=== PATIENT | female | born 1965 | race Two or more races ===

== ENCOUNTER 2017-01-18 13:31 | Emergency (ER) | payer OTHER ==
[2017-01-18 13:47] VITALS: BP 157/81; PULSE 81; TEMP 98.2; BMI 38.4
--- NOTE | 2017-01-18 14:56 | PDOC ---
History of Present Illness - General Chief Complaint: Back Pain Stated Complaint: BACK PAIN Time Seen by Provider: 01/18/17 14:32 History Source: Patient Exam Limitations: No Limitations - History of Present Illness Initial Comments: CHIEF COMPLAINT: 51 y/o afebrile, morbidly obese female c/o right shoulder pain and right lower back pain x 2 months. HISTORY OF PRESENT ILLNESS: The patient denies trauma to back or shoulder. She is disabled and therefore denies any repetitive motion or heavy lifting. She has been taking 2 aleve per day with no relief. Vital signs on arrival are within normal limits. REVIEW OF SYSTEMS: GENERAL/CONSTITUTIONAL: No fever/chills. No weakness. No weight change. HEAD, EYES, EARS, NOSE AND THROAT: No change in vision. No ear pain or discharge. No sore throat. CARDIOVASCULAR: No chest pain or shortness of breath. RESPIRATORY: No cough, wheezing, or hemoptysis. GASTROINTESTINAL: No abd pain, nausea, vomiting, diarrhea. GENITOURINARY: No dysuria, frequency, or change in urination. MUSCULOSKELETAL: +right shoulder pain. +right low back pain. No neck pain. SKIN: No rash or easy bruising. NEUROLOGIC: No headache, vertigo, loss of consciousness, or loss of sensation. PHYSICAL EXAM: GENERAL: The patient is awake, alert, and fully oriented, in no acute distress. she is morbidly obese and ambulatory. HEAD: Normal with no signs of trauma. ENT: Pupils equal, round and reactive to light, extraocular movements intact, sclera anicteric, conjunctiva clear. Neck supple. EXTREMITIES: Normal range of motion, no edema. Pain with extension of right arm and abduction > 90 degrees. BACK: No midline lumbar spine TTP or step offs. Pain reproduced with palpation of right lumbar paravertebral muscles. NEUROLOGICAL: Normal speech, normal gait. CN II-XII grossly intact. PSYCH: Normal mood, normal affect. SKIN: Warm, dry, normal turgor, no rashes or lesions noted. Past History - Past Medical History Allergies/Adverse Reactions: Allergies Allergy/AdvReac Type Severity Reaction Status Date / Time No Known Allergies Allergy Verified 01/18/17 13:47 Home Medications: Ambulatory Orders Haloperidol 10 mg PO BID 06/05/15 Topiramate [Topamax] 200 mg PO BID 06/05/15 Metoprolol Succinate [Toprol XL -] 50 mg PO DAILY 07/04/15 Benztropine Mesylate [Cogentin -] 2 mg PO DAILY 01/18/17 Anemia: No Asthma: No Cancer: No Cardiac Disorders: No CVA: No COPD: No CHF: No Dementia: No Diabetes: No GI Disorders: No Disorders: No HTN: Yes Hypercholesterolemia: No Liver Disease: No Psychiatric Problems: Yes (DEPRESSION) Seizures: No Thyroid Disease: No - Surgical History Abdominal Surgery: No Appendectomy: No Cardiac Surgery: No Cholecystectomy: Yes Lung Surgery: No Orthopedic Surgery: No - Immunization History Immunization Up to Date: Yes - Psycho/Social/Smoking Cessation Hx Anxiety: No Suicidal Ideation: No Smoking Status: No Smoking History: Never smoked Have you smoked in the past 12 months: No Number of Cigarettes Smoked Daily: 0 Hx Alcohol Use: No Drug/Substance Use Hx: No Substance Use Type: None Hx Substance Use Treatment: No *Physical Exam - Vital Signs Last Vital Signs Temp Pulse Resp BP Pulse Ox 98.2 F 81 20 157/81 97 01/18/17 13:44 01/18/17 13:44 01/18/17 13:44 01/18/17 13:44 01/18/17 13:44 Medical Decision Making - Medical Decision Making A/P: 51 y/o afebrile female with chronic right shoulder and low back pain. Will give IM toradol in the ER. Suggested she take 800mg of ibuprofen TID with food for pain, apply heating pads and stretch affected area and f/u with Dr. Yarbrough within 2 weeks if no improvement in symptoms. Pt refused toradol. The patient verbalizes understanding of all instructions, has no further questions and is awaiting discharge. *DC/Admit/Observation/Transfer Diagnosis at time of Disposition: Musculoskeletal back pain Shoulder pain Qualifiers: Chronicity: acute Laterality: right Qualified Code(s): M25.511 - Pain in right shoulder - Discharge Dispostion Condition at time of disposition: Good - Referrals Referrals: STAFF,NOT ON [Primary Care Provider] - Terell Yarbrough MD [Staff Physician] - - Patient Instructions Printed Discharge Instructions: DI for Back Strain or Sprain, DI for Shoulder Sprain, How To Perform RICE (Rest, Ice, Compress, Elevate) Additional Instructions: Discharge Instructions: -A prescription for ibuprofen has been called to your pharmacy. Please take as prescribed for pain -Follow RICE instructions -Follow up with Dr. Yarbrough within 1 week if no improvement in symptoms
== END 2017-01-18 15:42 | disposition home or self-care (01) ==
LOC: JERFT 13:31
DX: M54.5 Low back pain (principal); M25.511 Pain in right shoulder; I10 Essential (primary) hypertension; F32.9 Major depressive disorder, single episode, unspecified
CPT/HCPCS: 99281-25

== ENCOUNTER 2017-09-14 09:33 | Emergency (ER) | payer OTHER ==
[2017-09-14 10:05] VITALS: BP 123/79; PULSE 86; TEMP 99; BMI 38.4
[2017-09-14] MEDS ORDERED: NAPROXEN 500 MG TABLET (FP) PO ONE (11:20)
[2017-09-14] MEDS ORDERED: NAPROXEN 500 MG TABLET (FP) ONE (11:22)
--- NOTE | 2017-09-14 11:25 | PDOC ---
History of Present Illness - General Chief Complaint: Pain Stated Complaint: RT HEEL PAIN Time Seen by Provider: 09/14/17 10:41 History Source: Patient Exam Limitations: No Limitations - History of Present Illness Initial Comments: 09/14/17 11:21 CHIEF COMPLAINT: Right heel pain HISTORY OF PRESENT ILLNESS: Patient is a 52-year-old female with history of depression presents with right heel pain. Patient reports she's had pain chronically but has worsened in the last several days woke up with increased intensity and pain today to right posterior heel. Denies any injury. History of Bone spur. Severity: Yes: moderate Lower Extremity Pain Location: right: heel Extremity Pain Location - Extremity Pain Location Extremity Pain Locations: right: heel Past History - Past Medical History Allergies/Adverse Reactions: Allergies Allergy/AdvReac Type Severity Reaction Status Date / Time No Known Allergies Allergy Verified 09/14/17 10:03 Home Medications: Ambulatory Orders Haloperidol 10 mg PO BID 06/05/15 Topiramate [Topamax] 200 mg PO BID 06/05/15 Metoprolol Succinate [Toprol XL -] 50 mg PO DAILY 07/04/15 Benztropine Mesylate [Cogentin -] 2 mg PO DAILY 01/18/17 Naproxen [Naprosyn] 500 mg PO BID #30 tablet 09/14/17 Anemia: No Asthma: No Cancer: No Cardiac Disorders: No CVA: No COPD: No CHF: No Dementia: No Diabetes: No GI Disorders: No Disorders: No HTN: Yes Hypercholesterolemia: No Liver Disease: No Psychiatric Problems: Yes (DEPRESSION) Seizures: No Thyroid Disease: No - Surgical History Abdominal Surgery: No Appendectomy: No Cardiac Surgery: No Cholecystectomy: Yes Lung Surgery: No Orthopedic Surgery: No - Immunization History Immunization Up to Date: Yes - Suicide/Smoking/Psychosocial Hx Smoking Status: No Smoking History: Never smoked Have you smoked in the past 12 months: No Number of Cigarettes Smoked Daily: 0 Information on smoking cessation initiated: No Hx Alcohol Use: No Drug/Substance Use Hx: No Substance Use Type: None Hx Substance Use Treatment: No Review of Systems - Review of Systems Constitutional: No: Symptoms Reported HEENTM: No: Symptoms Reported Respiratory: No: Symptoms reported Cardiac (ROS): No: Symptoms Reported ABD/GI: No: Symptoms Reported : No: Symptoms Reported Musculoskeletal: Yes: Other (right heel pain) Integumentary: Yes: Erythema (erythema to right posterior heel) Neurological: No: Symptoms reported All Other Systems: Reviewed and Negative *Physical Exam - Vital Signs Last Vital Signs Temp Pulse Resp BP Pulse Ox 99.0 F 86 18 123/79 100 09/14/17 10:03 09/14/17 10:03 09/14/17 10:03 09/14/17 10:03 09/14/17 10:03 - Physical Exam General Appearance: Yes: Appropriately Dressed. No: Apparent Distress Respiratory/Chest: positive: Lungs Clear, Normal Breath Sounds Cardiovascular: positive: Regular Rhythm Extremity: positive: Normal Capillary Refill, Normal Range of Motion, Tender ( right posterior heel), Erythema. negative: Coldness, Swelling, Inflammation Integumentary: positive: Normal Color, Dry, Erythema. negative: Swelling, Ecchymosis, Bruising Neurologic: positive: Alert, Normal Mood/Affect ED Treatment Course - RADIOLOGY Radiology Studies Ordered: Category Date Time Status FOOT-RIGHT [RAD] Stat Radiology 09/14/17 10:13 Completed Medical Decision Making - Medical Decision Making 09/14/17 11:22 A/P: Patient with right posterior heel pain, x-ray was performed and it demonstrates significant bone spurring patient referred to podiatry. Will start patient on Naprosyn with strict follow-up instructions *DC/Admit/Observation/Transfer Diagnosis at time of Disposition: Heel spur Qualifiers: Laterality: right Qualified Code(s): M77.31 - Calcaneal spur, right foot - Discharge Dispostion Disposition: HOME Condition at time of disposition: Stable Admit: No - Prescriptions Prescriptions: Naproxen [Naprosyn] 500 mg PO BID #30 tablet - Referrals Referrals: ON STAFF,NOT [Primary Care Provider] - - Patient Instructions Additional Instructions: May apply ice to right posterior heel, recommend follow-up with podiatry as soon as possible - Post Discharge Activity Forms/Work/School Notes: Back to Work
== END 2017-09-14 11:39 | disposition home or self-care (01) ==
LOC: JERFT 09:33
DX: M77.31 Calcaneal spur, right foot (principal); I10 Essential (primary) hypertension; F41.9 Anxiety disorder, unspecified
CPT/HCPCS: 73630-TC-RT; 99281-25

== ENCOUNTER 2018-01-13 08:58 | Emergency (ER) | payer OTHER ==
[2018-01-13 09:02] VITALS: BP 141/101; PULSE 94; TEMP 98.5; BMI 39.9
--- NOTE | 2018-01-13 09:19 | PDOC ---
History of Present Illness - General Chief Complaint: Pain Stated Complaint: SWOLLEN LT KNEE Time Seen by Provider: 01/13/18 09:10 History Source: Patient Exam Limitations: No Limitations (L knee pain X 4 days) - History of Present Illness Initial Comments: 01/13/18 09:22 52y/o F with atraumatic L knee pain X 4 days. taking tylenol Past History - Travel Traveled outside of the country in the last 30 days: No Close contact w/someone who was outside of country & ill: No - Past Medical History Allergies/Adverse Reactions: Allergies Allergy/AdvReac Type Severity Reaction Status Date / Time No Known Allergies Allergy Verified 01/13/18 09:02 Home Medications: Ambulatory Orders Haloperidol 10 mg PO BID 06/05/15 Topiramate [Topamax] 200 mg PO BID 06/05/15 Metoprolol Succinate [Toprol XL -] 50 mg PO DAILY 07/04/15 Benztropine Mesylate [Cogentin -] 2 mg PO DAILY 01/18/17 Naproxen [Naprosyn] 500 mg PO BID #30 tablet 09/14/17 Naproxen 375 mg PO BID 7 Days #20 tablet 01/13/18 Anemia: No Asthma: No Cancer: No Cardiac Disorders: No CVA: No COPD: No CHF: No Dementia: No Diabetes: No GI Disorders: No Disorders: No HTN: Yes Hypercholesterolemia: No Liver Disease: No Psychiatric Problems: Yes (DEPRESSION) Seizures: No Thyroid Disease: No - Surgical History Abdominal Surgery: No Appendectomy: No Cardiac Surgery: No Cholecystectomy: Yes Lung Surgery: No Orthopedic Surgery: No - Immunization History Immunization Up to Date: Yes - Suicide/Smoking/Psychosocial Hx Smoking Status: No Smoking History: Never smoked Have you smoked in the past 12 months: No Number of Cigarettes Smoked Daily: 0 Hx Alcohol Use: No Drug/Substance Use Hx: No Substance Use Type: None Hx Substance Use Treatment: No Review of Systems - Review of Systems Is the patient limited Tanzanian proficient: No Constitutional: No: Chills, Fever Musculoskeletal: Yes: Joint Swelling, Other (L knee pain). No: Back Pain, Muscle Pain, Joint Stiffness *Physical Exam - Vital Signs Last Vital Signs Temp Pulse Resp BP Pulse Ox 98.5 F 94 H 18 141/101 100 01/13/18 08:59 01/13/18 08:59 01/13/18 08:59 01/13/18 08:59 01/13/18 08:59 - Physical Exam General Appearance: Yes: Nourished Musculoskeletal: positive: Normal Inspection, Other (L knee). negative: Decreased Range of Motion Extremity: positive: Normal Capillary Refill (L knee--stable gait, no warmth or swelling noted, FROM) Neurologic: positive: system admin II-XII NML intact, Fully Oriented, Alert Medical Decision Making - Medical Decision Making 01/13/18 09:23 52y/o F with atraumatic L knee pain X 4 days, denies f/c exam consistent with FROM in knee, no warmth, + obese female weight loss recommended, naproxen for pain, RICE instructions will not benefit from xray imaging given no trauma and exam pt has a PCP appt in 2wks, recommends f/u 01/13/18 09:33 01/13/18 09:33 *DC/Admit/Observation/Transfer Diagnosis at time of Disposition: Knee pain, left Qualifiers: Chronicity: acute Qualified Code(s): M25.562 - Pain in left knee - Discharge Dispostion Disposition: HOME Condition at time of disposition: Stable Decision to Admit order: No - Prescriptions Prescriptions: Naproxen 375 mg PO BID 7 Days #20 tablet - Referrals Referrals: ON STAFF,NOT [Primary Care Provider] - - Patient Instructions Printed Discharge Instructions: DI for Knee Pain Additional Instructions: I discussed the physical exam findings, ancillary test results and final diagnoses with the patient. I answered all of the patient's questions. The patient was satisfied with the care received and felt comfortable with the discharge plan and treatment plan. The patient will call their primary care physician within 24 hours to arrange follow-up and will return to the Emergency Department with any new, persistent or worsening symptoms. - Post Discharge Activity
== END 2018-01-13 09:34 | disposition home or self-care (01) ==
LOC: JERFT 08:58
DX: M25.562 Pain in left knee (principal)
CPT/HCPCS: 99281-25

== ENCOUNTER 2018-05-01 07:36 | Day surgery (SDC) | payer OTHER ==
[2018-04-02 14:43] VITALS: BMI 41.9
[~2018-05-01 07:36] MED LIST: CEFAZOLIN 2 GM in DEXTROSE 5%-WATER - 50 ML IVPB ONE; CELECOXIB 200 MG CAPSULE PO ONE; GABAPENTIN 300 MG CAPSULE (FP) PO ONE; ROPIVICAINE 0.2%/MORPH PF/KETOROLAC - 51ML DISP.SYRINGE IA ONE; TRANEXAMIC ACID 1000 MG/10 ML VIAL IVPUSH ONE
--- NOTE | 2018-05-01 07:58 | HP ---
[facility] - Chief Complaint Chief Complaint: left knee pain - Past Medical History Allergies/Adverse Reactions: Allergies Allergy/AdvReac Type Severity Reaction Status Date / Time No Known Allergies Allergy Verified 04/02/18 14:35 Cardiovascular: Yes: HTN Gastrointestinal: Yes: Other (cholelithiasis) ...LMP: 04/02/18 - Current Medications Current Medications: Home Medications Medication Instructions Recorded Haloperidol 5 mg PO HS 06/05/15 Acetaminophen [Tylenol Arthritis] 650 mg PO BID 04/02/18 Calcium Carb/Vitamin D3/Vit K1 1 each PO DAILY 04/02/18 [Citracal Soft Chew] Multivitamins [Tab-A-Vit -] 1 tab PO DAILY 04/02/18 Sertraline HCl [Zoloft -] 50 mg PO HS 04/02/18 Sertraline HCl [Zoloft] 100 mg PO DAILY 04/02/18 Benztropine Mesylate [Cogentin -] 2 mg PO BID 05/01/18 Haloperidol [Haldol -] 2 mg PO DAILY 05/01/18 Naproxen 500 mg PO ASDIR PRN 05/01/18 [facility] Physical Exam - Physical Examination General Appearance: Well Nourished, Well Developed, Alert & Oriented x3 ENT: Clear Lung: Normal air movement Heart: Regular rate & rhythm Extremities: Other (left knee- + swelling, + ttp medially, decr rom, nvi xrays show grade 4 medial djd) Neurological: Intact, Alert, Oriented [facility] Impression/Plan - Impression/Plan Impression: left knee medial djd Operative Procedure: left medial tamia ukr Date to be Performed: 05/01/18
[2018-05-01] MEDS: oxyCODONE HCL 10 MG SUSTAINED ACTING TABLET PO ONE ×2 (08:15→19:41)
[2018-05-01] MEDS ORDERED: ceFAZolin SODIUM 1 GM VIAL ONE ×2 (08:32→09:44)
[2018-05-01] MEDS ORDERED: PROPOFOL 20 ML ONE ×2 (08:33)
[2018-05-01] MEDS ORDERED: MIDAZOLAM HCL 2 MG/2 ML SINGLE DOSE VIAL ONE ×2 (08:45→10:01)
[2018-05-01] MEDS ORDERED: ROPIVACAINE HCL 0.5% 30ML VIAL ONE (08:46)
[2018-05-01] MEDS ORDERED: BUPIVACAINE HCL/PF (5 MG/ML) 30 ML VIAL IJ ONE (09:42)
[2018-05-01] MEDS ORDERED: GELATIN, ABSORBABLE 100 EACH SPONGE TP ONE ×3 (09:44→10:48)
[2018-05-01] MEDS ORDERED: THROMBIN (BOVINE) 5,000 UNIT VIAL TP ONE ×3 (09:44→10:48)
[2018-05-01] MEDS ORDERED: ePHEDrine SULFATE 50 MG/1 ML AMPULE ONE (10:11)
[2018-05-01] MEDS ORDERED: ROPIVICAINE 0.2%/MORPH PF/KETOROLAC - 51ML DISP.SYRINGE IA ONE ×2 (10:58→11:08)
[2018-05-01] MEDS ORDERED: MAG HYDROX/AL HYDROX/SIMETH 30 ML UNIT-DOSE CUP PO PRN (11:26)
--- NOTE | 2018-05-01 11:28 | OP ---
Operative Note - Note: Operative Date: 05/01/18 (stephanie) Pre-Operative Diagnosis: left knee medial djd Operation: left medial tamia ukr Post-Operative Diagnosis: Same as Pre-op Surgeon: Juve Hernandez Naturopath: Benjamín Quiroga Anesthesiologist/BELT REPAIRER: Imelda Andino Anesthesia: Spinal, Local Specimens Removed: bone fragments Estimated Blood Loss (mls): 100 Operative Report Dictated: Yes
[2018-05-01] MEDS ORDERED: LACTATED RINGERS SOLUTION 1,000 ML IV SCH (11:30)
[2018-05-01] MEDS ORDERED: ONDANSETRON 4 MG/2 ML VIAL IVPUSH PRN (11:31)
[2018-05-01] MEDS ORDERED: oxyCODONE HCL 5 MG TABLET PO PRN (11:32)
[2018-05-01] MEDS ORDERED: ACETAMINOPHEN 325 MG TABLET (FP) PO ONE (12:00)
[2018-05-01] MEDS: oxyCODONE HCL 5 MG TABLET PO PRN ×3 (13:57→23:00)
[2018-05-01] MEDS: CEFAZOLIN 2 GM/D5W 2 GM/50 ML ML IVPB SCH (17:19)
[2018-05-01] MEDS: ACETAMINOPHEN 325 MG TABLET (FP) PO SCH ×3 (17:19→23:00)
[2018-05-01] MEDS ORDERED: PT OWN MED DRAWER 7, Y5N ONE (21:20)
[2018-05-01] MEDS: BENZTROPINE MESYLATE 0.5 MG TABLET (FP) PO SCH (21:23)
[2018-05-01] MEDS: SENNOSIDES/DOCUSATE COMBO (SENNA PLUS) TABLET (UD) PO SCH (21:23)
[2018-05-01] MEDS ORDERED: HALOPERIDOL 5 MG TABLET (FP) PO SCH (22:00)
[2018-05-01] MEDS ORDERED: SERTRALINE HCL 50 MG TABLET (FP) PO SCH (22:00)
[2018-05-02] MEDS: CEFAZOLIN 2 GM/D5W 2 GM/50 ML ML IVPB SCH (01:22)
[2018-05-02] MEDS: oxyCODONE HCL 5 MG TABLET PO PRN ×4 (03:03→12:13)
[2018-05-02] MEDS: ACETAMINOPHEN 325 MG TABLET (FP) PO SCH ×2 (05:47→12:12)
[2018-05-02 06:35] VITALS: BP 133/63; PULSE 94
[2018-05-02] MEDS ORDERED: ASPIRIN 325 MG TABLET PO SCH (08:00)
--- NOTE | 2018-05-02 09:14 | PN ---
Progress Note (short form) - Note Progress Note: Ortho Pt seen and examined s/p left medial tamia ukr pod #1 Selected Entries 05/02/18 06:34 Temperature 98.3 F Pulse Rate 94 H Respiratory 18 Rate Blood Pressure 133/63 dressing c/d/i, calf soft, nt rom 0-50, nvi a/p PT dvt ppx pain control d/c home today f/u in 1 week
--- NOTE | 2018-05-02 09:15 | DS ---
Physical Examination Vital Signs: Vital Signs Temperature 98.3 F 05/02/18 06:34 Pulse Rate 94 H 05/02/18 06:34 Respiratory Rate 18 05/02/18 09:00 Blood Pressure 133/63 05/02/18 06:34 O2 Sat by Pulse Oximetry (%) 98 05/02/18 09:00 Discharge Summary Reason For Visit: OSTEOARTHRITIS Procedures: Principal: s/p left medial tamia ukr Hospital Course: admitted for elective left medial tamia ukr, uneventful post-op, stable for d/c Condition: Good - Instructions Diet, Activity, Other Instructions: Post-op Instructions-Partial Knee Replacement Call the office for a follow-up appointment in 1 week - [phone] Aspirin 325mg daily for 6 weeks. Pain medication was sent into your pharmacy. Apply Graduated Compression Stockings (TEDs) to both lower extremities- remove daily for hygiene ONLY Apply Sequential Compression Device (SCDs) to both Lower extremities remove for PT and hygiene ONLY Apply cold packs to affected area for 15 minutes every 2 hours. Physical Therapist will come to your home for the first 5 days. You will be set up with outpatient PT at your first post-operative visit. Patient may ambulate as tolerated-encourage self care (at least every 2-3 hours while awake) with walker or cane Maintain Aquacel (waterproof) dressing to operative wound (will be removed by surgeon at first office visit) Shower with Aquacel dressing in place-if Aquacel integrity compromised, remove and apply dry sterile dressing and notify Orthopedist. DO NOT SHOWER unless Orthopedists approves without Aquacel dressing CONTACT THE OFFICE FOR ANY CHANGE IN YOUR CONDITION (for example-fever greater than 102 degrees, excessive bleeding from operative site, purulent drainage, severe swelling or pain) GO TO THE EMERGENCY ROOM IF THERE IS A MEDICAL EMERGENCY Knee Precautions: * Keep a rolled towel under affected heel while in bed or chair (to keep knee in extension) * Keep affected leg elevated except during mealtimes * DO NOT PLACE PILLOW UNDER AFFECTED KNEE * If you have any questions, please do not hesitate to call the office - . Referrals: Juve Hernandez MD [Staff Physician] - Disposition: VNS/HOME HEALTH CARE - Home Medications Comprehensive Discharge Medication List: Ambulatory Orders Haloperidol 5 mg PO HS 06/05/15 Acetaminophen [Tylenol Arthritis] 650 mg PO BID 04/02/18 Calcium Carb/Vitamin D3/Vit K1 [Citracal Soft Chew] 1 each PO DAILY 04/02/18 Multivitamins [Multivit ([facility] Formulary)] 1 tab PO DAILY 04/02/18 Sertraline HCl [Zoloft -] 50 mg PO HS 04/02/18 Sertraline HCl [Zoloft] 100 mg PO DAILY 04/02/18 Aspirin [ASA -] 325 mg PO DAILY@0800 tablet 05/01/18 Benztropine Mesylate [Cogentin -] 2 mg PO BID 05/01/18 Haloperidol [Haldol -] 2 mg PO DAILY 05/01/18 Naproxen 500 mg PO ASDIR PRN 05/01/18 Oxycodone HCl/Acetaminophen [Percocet 5-325 mg Tablet -] 1 - 2 tab PO Q6H #50 tab MDD 8 05/01/18
[2018-05-02] MEDS ORDERED: PT OWN MED DRAWER 7, Y5N ONE (09:23)
[2018-05-02] MEDS: SENNOSIDES/DOCUSATE COMBO (SENNA PLUS) TABLET (UD) PO SCH (09:29)
[2018-05-02] MEDS: BENZTROPINE MESYLATE 0.5 MG TABLET (FP) PO SCH (09:31)
[2018-05-02] MEDS ORDERED: SERTRALINE HCL 50 MG TABLET (FP) PO SCH (10:00)
[2018-05-02] MEDS ORDERED: PANTOPRAZOLE 40 MG TABLET (FP) PO SCH (10:00)
[2018-05-02] MEDS ORDERED: PATIENT'S OWN MEDICATION (NON-FORMULARY) (Sertraline Hcl [Zoloft] 100 MG) PO SCH (10:00)
[2018-05-02] MEDS ORDERED: HALOPERIDOL 1 MG TABLET (FP) PO SCH (10:00)
[2018-05-02] MEDS ORDERED: MULTIVITAMINS (DAILY MVI) TABLET (FP) PO SCH ×2 (10:00)
--- NOTE | 2018-05-02 10:08 | PN ---
Progress Note, Physician Chief Complaint: day #1 s/p left medial knee tamia - Current Medication List Current Medications: Active Medications Acetaminophen (Tylenol -) 650 mg PO Q6H [facility] [place] Stop: 05/04/18 11:44 Last Admin: 05/02/18 05:47 Dose: 650 mg Al Hydroxide/Mg Hydroxide (Mylanta Oral Suspension -) 30 ml PO Q4H PRN PRN Reason: DYSPEPSIA Aspirin (Asa -) 325 mg PO DAILY@0800 [facility] [place] Last Admin: 05/02/18 08:34 Dose: 325 mg Benztropine Mesylate (Cogentin -) 2 mg PO BID [facility] Last Admin: 05/02/18 09:31 Dose: 2 mg Haloperidol (Haldol -) 2 mg PO DAILY [facility] [place] Last Admin: 05/02/18 09:32 Dose: 2 mg Haloperidol (Haldol -) 5 mg PO [facility] Last Admin: 05/01/18 21:23 Dose: 5 mg Multivitamins/Minerals/Vitamin C (Tab-A-Vit -) 1 tab PO DAILY [facility] [place] Last Admin: 05/02/18 09:30 Dose: 1 tab Ondansetron HCl (Zofran Injection) 4 mg IVPUSH Q6H PRN PRN Reason: NAUSEA AND/OR VOMITING Oxycodone HCl (Roxicodone -) 5 mg PO Q3H PRN PRN Reason: PAIN LEVEL 1-5 Oxycodone HCl (Roxicodone -) 10 mg PO Q3H PRN PRN Reason: PAIN LEVEL 6-10 Last Admin: 05/02/18 09:30 Dose: 10 mg Pantoprazole Sodium (Protonix -) 40 mg PO DAILY [facility] [place] Last Admin: 05/02/18 09:30 Dose: 40 mg Senna/Docusate Sodium (Pericolace -) 2 tablet PO BID [facility] [place] Last Admin: 05/02/18 09:29 Dose: 2 tablet Sertraline HCl (Zoloft -) 50 mg PO HS [facility] [place] Last Admin: 05/01/18 21:23 Dose: 50 mg Sertraline HCl (Zoloft -) 100 mg PO DAILY [facility] Last Admin: 05/02/18 09:29 Dose: 100 mg - Objective Vital Signs: Vital Signs Temperature 98.3 F 05/02/18 06:34 Pulse Rate 94 H 05/02/18 06:34 Respiratory Rate 18 05/02/18 09:00 Blood Pressure 133/63 05/02/18 06:34 O2 Sat by Pulse Oximetry (%) 98 05/02/18 09:00 Assessment/Plan Doing well s/p spinal and nerve block for medial knee makoplasty. Pain well controlled on PO pain meds; pt for dc today
[2018-05-02 11:20] VITALS: TEMP 98.6
--- NOTE | 2018-05-03 19:59 | SPEC ---
DATE OF OPERATION: 05/01/2018 PREOPERATIVE DIAGNOSIS: Degenerative joint disease, left knee, medially. POSTOPERATIVE DIAGNOSIS: Degenerative joint disease, left knee, medially. PROCEDURE: Left medial unicompartmental knee replacement with robotic-assisted navigation (MAKOplasty) and patelloplasty. SURGICAL ATTENDING: Juve Hernandez MD SMELLER: JAQUELIN Chowdhury ANESTHESIA: Regional and spinal. CLOSURE: Medial NANO components with a 3 femur, 4 tibia, and an 8 polyethylene; No. 1 Vicryl, fascia; 0 and 2-0, subcutaneous; 3-0 Monocryl subcuticular with skin glue for skin; 4-0 undyed Vicryl for pin sites. CONDITION: To recovery in stable condition. DESCRIPTION OF OPERATIVE PROCEDURE: Patient was taken to the operating room on May 01, 2018. Spinal and regional anesthesia was administered by the anesthesiologist. IV Kefzol and TXA were administered prophylactically prior to the case. A well-padded pneumatic tourniquet was placed on the left proximal thigh. The left lower extremity was prepped and draped in the usual sterile fashion. A 6- to 8-cm longitudinal incision over the medial side of the patella from mid patella to the tibial tubercle was incised and was deepened using Bovie cautery. An arthrotomy was then made just medial to the patellar tendon and the patella. Subperiosteal dissection was done on the anteromedial proximal tibia all the way back to the MCL. Partial fat pad excision was performed, exposing the medial compartment. Checkpoint was malleable at both the femur and the tibia. Using 2 stab incisions in the femur 1 handbreadth above the patella on the femur and 2 stab incisions 1 handbreadth below the tibial tubercle on the tibia, 2 threaded pins were drilled in parallel fashion from anterior to posterior, going through the proximal cortex and engaging the 2nd but not through the 2nd cortex. To these threaded pins were fastened navigation rays, 1 on the femur and 1 on the tibia. The knee was then registered with the navigation device with the center of the rotation of the hip, medial and lateral malleoli, and multiple points both on the femur and on the tibia. Excellent registration of less than 0.5 mm was obtained on both to ensure adequate registration. The navigation device ensured us to "pop the bubbles" both on the femur and the tibia and that was performed and passed registration. The knee was then thoroughly inspected to remove all osteophytes both on the femur and the tibia. Also, osteophytes on the trochlea and on the surface of the patella were removed as well. The knee was then stressed with valgus stress at 0, 30, 60, 90, and 120 degrees of flexion. This propagated a looseness/tightness graft. The virtual positions of the components were then optimized to ensure an excellent graft. The tracking also was optimized by manipulating the virtual position to ensure that the femoral component articulated with the central portion of the tibial component. The robot was then brought into the field and was registered. The robot was used to bur the bone on both the femur and the tibia as to the specifications of the components. The trial components were then applied on both the femur and the tibia with an appropriate polyethylene insert. The knee was taken through a range of motion and found to have full extension, full flexion, with excellent stability. Stressing the graft revealed an excellent looseness/tightness graft with the trial components in place. The trial components were removed. The knee was thoroughly irrigated with a copious amount of antibiotic irrigation. The real components were then cemented in using modern generation cement techniques with antibiotic cement and pressurization. After the cement was hardened, the knee was thoroughly inspected to remove out all excess cement. The real polyethylene insert was then clipped into place. Range of motion and stability were again assessed to be as they were with the trials. At this time, the pins and the checkpoints were removed. The knee was again thoroughly irrigated. The arthrotomy was closed with No. 1 Vicryl, 0 and 2-0 subcutaneous, and 3-0 Monocryl subcuticular with skin glue for the skin, 4-0 undyed Vicryl for the pin sites. Sterile pressure dressing was placed over the knee. Patient awakened from anesthesia and transferred to recovery in stable condition. No complications. Estimated blood loss negligible. X-rays postoperatively revealed excellent position of the components. Dimitri [id number]
== END 2018-05-02 12:25 | disposition home health service (06) ==
LOC: FM/S 07:36 → FASUSAT 07:36
PROVIDERS: ATTEND Orthopaedic Surgery
PROC: 8E0YXBZ Computer Assisted Procedure of Lower Extremity (ICD-10-PCS; 2018-05-01)
PROC: 8E0Y0CZ Robotic Assisted Procedure of Lower Extremity, Open Approach (ICD-10-PCS; 2018-05-01)
PROC: 0SRD0L9 Replacement of Left Knee Joint with Medial Unicondylar Synthetic Substitute, Cemented, Open Approach (ICD-10-PCS; principal; 2018-05-01 10:12)
DX: M17.12 Unilateral primary osteoarthritis, left knee (principal); I10 Essential (primary) hypertension
CPT/HCPCS: 20985; 27446; C1776; S2900; 73560-TC-LT-FY; 84703; 94760; 97116-GP; 97162-GP

== ENCOUNTER 2018-09-28 08:00 | Emergency (ER) | payer OTHER ==
[2018-09-28 08:06] VITALS: BP 161/90; PULSE 98; TEMP 98.6; BMI 44.4
--- NOTE | 2018-09-28 08:18 | PDOC ---
History of Present Illness - General Chief Complaint: Cold Symptoms Stated Complaint: COUGH Time Seen by Provider: 09/28/18 08:06 History Source: Patient Exam Limitations: No Limitations - History of Present Illness Initial Comments: 09/28/18 08:39 HPI: A 53-year-old female complains of upper respiratory symptoms, sore throat , feeling warm, no documented temperature, coughing. This is been going on for one week. She has no history of asthma Chief Compliant: Upper respiratory symptoms PMH: Depression FH: Pt has not recently traveled outside the country in the last 30 days. Pt has not been in contact with people who have traveled out of the country, in contact with people who have been ill with fever, n, v, d. SH: smoking use: NONE illicit drug use: NONE alcohol use: NONE employment/educational status: Stays at home sexual history: PSH: Home med use noted on OCT Allergies: NKA Immunizations: See the flu vaccine Timing/Duration: reports: week Severity: reports: mild Past History - Past Medical History Allergies/Adverse Reactions: Allergies Allergy/AdvReac Type Severity Reaction Status Date / Time No Known Allergies Allergy Verified 09/28/18 08:04 Home Medications: Ambulatory Orders Haloperidol 5 mg PO HS 06/05/15 Acetaminophen [Tylenol Arthritis] 650 mg PO BID 04/02/18 Calcium Carb/Vitamin D3/Vit K1 [Citracal Soft Chew] 1 each PO DAILY 04/02/18 Multivitamins [Multivit ([facility] Formulary)] 1 tab PO DAILY 04/02/18 Sertraline HCl [Zoloft] 100 mg PO DAILY 04/02/18 Naproxen 500 mg PO ASDIR PRN 05/01/18 Oxycodone HCl/Acetaminophen [Percocet 5-325 mg Tablet] 1 - 2 tab PO Q6H #50 tab MDD 8 05/01/18 Methylprednisolone [Medrol Dose Larry] 4 mg PO ASDIR #21 tablet 09/28/18 Anemia: No Asthma: No Cancer: No Cardiac Disorders: No CVA: No COPD: No CHF: No DVT: No Dementia: No Diabetes: No GI Disorders: No Disorders: No HTN: Yes (NOT ON MEDS) Hypercholesterolemia: No Liver Disease: No Psychiatric Problems: Yes (DEPRESSION) Seizures: No Thyroid Disease: No - Surgical History Abdominal Surgery: No Appendectomy: No Cardiac Surgery: No Cholecystectomy: Yes Lung Surgery: No Neurologic Surgery: No Orthopedic Surgery: No - Immunization History Immunization Up to Date: Yes - Suicide/Smoking/Psychosocial Hx Smoking Status: No Smoking History: Unknown if ever smoked Have you smoked in the past 12 months: No Number of Cigarettes Smoked Daily: 0 Hx Alcohol Use: No Drug/Substance Use Hx: No Substance Use Type: None Hx Substance Use Treatment: No Respiratory Specific PMHX - Complaint Specific PMHX Angina: No Bronchitis: No Pneumonia: No Pulmonary Embolus: No TB (Tuberculosis): No Review of Systems - Review of Systems Comments:: 09/28/18 08:41 General statement: I been having a cold for a week " Hematology: neg history of bleeding/blood thinners Skin: Neg for lesions, rash, bruising. HEENT: Positive nasal congestion positive cough positive sore throat Respiratory: Neg SOB or difficulty in breathing, positive cough Cardiac: Neg chest pain GI: Neg pain, n/v : Neg problems on voiding MS: Neg for joint pain/stiffness, no edema Neuro: Neg for LOC, weakness, Endocrine: Neg for excess thirst/hunger, cold/heat intolerance, excess sweating Allergies: Neg for allergies *Physical Exam - Vital Signs Last Vital Signs Temp Pulse Resp BP Pulse Ox 98.6 F 98 H 20 161/90 96 09/28/18 08:04 09/28/18 08:04 09/28/18 08:04 09/28/18 08:04 09/28/18 08:04 - Physical Exam Comments: 09/28/18 08:41 General Appearance: This ill-appearing female V/S: hemodynamically stable, afebrile Skin: WNL of pt's skin color, no signs of pallor, mottling, cyanosis Head:symmetrical Eyes: EOM's intact, PERRLA Ears: denies pain Nose: patent but states that she has some nasal congestion Throat: lips, teeth, gums, tongue, buccal mucos pink and moist, no signs of pustules, no erythema, no redness noted Lungs: Chest symmetry equal. Cap refill <3 seconds. Lung sounds clear Cardiac: PMI at R 4MCL space, pos S1 and S2, regular rate. Abdomen: Soft, round, nontender : Not observed Muscularskeletal: Gait steady, ambulated in to ER, no edema +PMS Neuro: AAOx3, cognitively intact, speech clear and appropriate. Moderate Sedation - Procedure Monitoring Vital Signs: Procedure Monitoring Vital Signs Temperature 98.6 F 09/28/18 08:04 Pulse Rate 98 H 09/28/18 08:04 Respiratory Rate 20 09/28/18 08:04 Blood Pressure 161/90 09/28/18 08:04 O2 Sat by Pulse Oximetry (%) 96 09/28/18 08:04 Medical Decision Making - Medical Decision Making 09/28/18 08:42 Patient initially was seen by me. She states that she's been having some symptoms of an upper respiratory cold with congestion. She states that she is warm however she has not had any documented fever. She has been taking some Robitussin for a dry cough. She has nasal congestion along with a sore throat and feeling ill. Patient is showing symptoms of an upper respiratory infection with some nasal congestion, hoarseness, no signs of erythema to the upper airway. Treating with a Medrol Dosepak, Mucinex suggested for [id number], Tylenol for fever and chills. She should return if there is any further complaint or worse symptoms. *DC/Admit/Observation/Transfer Diagnosis at time of Disposition: Bronchitis - Discharge Dispostion Disposition: HOME Condition at time of disposition: Stable Decision to Admit order: No - Prescriptions Prescriptions: Methylprednisolone [Medrol Dose Larry] 4 mg PO ASDIR #21 tablet - Referrals - Patient Instructions Printed Discharge Instructions: DI for Acute Bronchitis Additional Instructions: Discharge instructions 1. Please follow up with your primary physician within the next few days and explain that you have been seen here in the Emergency Room. 2. If you experience any worsening of symptoms, such as increased shortness breath, wheezing, chest pain please return to the ER 3. Rest, continue taking her home meds, use a humidifier at home, avoid the cold air, cover your face when you are outside. 4. Drink plenty of water, complete the steroids as prescribed, purchase Mucinex [id number] and use as prescribed, take Tylenol for any fevers. - Post Discharge Activity
== END 2018-09-28 08:39 | disposition home or self-care (01) ==
LOC: JERFT 08:00
DX: J04.0 Acute laryngitis (principal); I10 Essential (primary) hypertension; F32.9 Major depressive disorder, single episode, unspecified
CPT/HCPCS: 99281-25

== ENCOUNTER 2020-03-18 11:38 | Emergency (ER) | payer OTHER ==
[2020-03-18 11:44] VITALS: BP 171/87; PULSE 110; TEMP 98.2; BMI 41.3
[2020-03-18] MEDS ORDERED: LORazepam 0.5 MG TABLET PO ONE (12:23)
[2020-03-18] MEDS ORDERED: LORazepam 0.5 MG TABLET ONE (12:25)
--- NOTE | 2020-03-18 12:26 | PDOC ---
History of Present Illness - General Chief Complaint: Psychiatric Stated Complaint: SENT BY PCP ( FOR SHOT) Time Seen by Provider: 03/18/20 12:01 - History of Present Illness Initial Comments: 03/18/20 12:24 54-year-old female with a past medical history of anxiety takes Cogentin and Effexor and a monthly shot of long-acting Haldol presents for evaluation because her psychiatrist office was closed and she cannot get her monthly Haldol injection. There was she was told to come to the emergency room. Past History - Medical History Allergies/Adverse Reactions: Allergies Allergy/AdvReac Type Severity Reaction Status Date / Time No Known Allergies Allergy Verified 03/18/20 12:20 Home Medications: Ambulatory Orders Haloperidol 5 mg PO HS 06/05/15 Acetaminophen [Tylenol Arthritis] 650 mg PO BID 04/02/18 Calcium Carb/Vitamin D3/Vit K1 [Citracal-D3 500 mg Soft Chew] 1 each PO DAILY 04/02/18 Multivitamins [Multivit ([facility] Formulary)] 1 tab PO DAILY 04/02/18 Sertraline HCl [Zoloft] 100 mg PO DAILY 04/02/18 Naproxen 500 mg PO ASDIR PRN 05/01/18 Oxycodone HCl/Acetaminophen [Percocet 5-325 mg Tablet] 1 - 2 tab PO Q6H #50 tab MDD 8 05/01/18 Methylprednisolone [Medrol Dose Larry] 4 mg PO ASDIR #21 tablet 09/28/18 Anemia: No Asthma: No Cancer: No Cardiac Disorders: No CVA: No COPD: No CHF: No DVT: No Dementia: No Diabetes: No GI Disorders: No Disorders: No HTN: Yes (NOT ON MEDS) Hypercholesterolemia: No Liver Disease: No Psychiatric Problems: Yes (DEPRESSION) Seizures: No Thyroid Disease: No - Surgical History Abdominal Surgery: No Appendectomy: No Cardiac Surgery: No Cholecystectomy: Yes Lung Surgery: No Neurologic Surgery: No Orthopedic Surgery: No - Reproductive History Is Patient Now?: No - Immunization History Immunization Up to Date: Yes - Psycho-Social/Smoking History Smoking Status: No Smoking History: Never smoked Have you smoked in the past 12 months: No Number of Cigarettes Smoked Daily: 0 - Substance Abuse Hx (Audit-C & DAST Scrn) In the last yr the pt used illegal drug/Rx for NonMed reason: No Score: Yes response is considered Positive: 0 Screen Result (Positive result requires Nsg. DAST-10): Negative Review of Systems - Review of Systems Constitutional: No: Fever Psychiatric: Yes: Anxiety, Other (She has no suicidal or homicidal ideations). No: Depression, Frequent Crying *Physical Exam - Vital Signs Last Vital Signs Temp Pulse Resp BP Pulse Ox 98.2 F 110 H 19 171/87 H 97 03/18/20 11:40 03/18/20 11:40 03/18/20 11:40 03/18/20 11:40 03/18/20 11:40 - Physical Exam General Appearance: Yes: Nourished, Appropriately Dressed. No: Apparent Distress, Disheveled, Alcohol on Breath HEENT: positive: Symmetrical Neck: positive: Supple Respiratory/Chest: positive: Normal Breath Sounds. negative: Respiratory Distress Musculoskeletal: positive: Normal Inspection Extremity: positive: Normal Inspection Integumentary: positive: Normal Color Neurologic: positive: flexo operator II-XII NML intact, Fully Oriented Medical Decision Making - Medical Decision Making 03/18/20 12:25 Dose of Haldol cannot be confirmed. I will give low-dose of Ativan patient is in agreement this will help her anxiety for today and she will follow-up with her psychiatrist tomorrow. Discharge - Discharge Information Problems reviewed: Yes Clinical Impression/Diagnosis: Anxiety Condition: Stable Disposition: HOME - Admission No - Follow up/Referral - Patient Discharge Instructions Additional Instructions: Return to the emergency room for further issues and without fail follow-up with your psychiatrist tomorrow as scheduled.
== END 2020-03-18 12:48 | disposition home or self-care (01) ==
LOC: JERFT 11:38
DX: F41.9 Anxiety disorder, unspecified (principal)
CPT/HCPCS: 99283-25

== ENCOUNTER 2020-08-28 09:11 | Emergency (ER) | payer OTHER ==
[2020-08-28 09:34] VITALS: BP 170/86; PULSE 96; TEMP 97.8; BMI 45.1
[2020-08-28] MEDS ORDERED: KETOROLAC TROMETHAMINE 60 MG/2 ML VIAL IM ONE (09:47)
[2020-08-28] MEDS ORDERED: KETOROLAC TROMETHAMINE 60 MG/2 ML VIAL ONE (09:57)
[2020-08-28] MEDS ORDERED: LIDOCAINE 5% TOPICAL PATCH TP ONE (10:36)
[2020-08-28] MEDS ORDERED: LIDOCAINE 5% TOPICAL PATCH ONE (10:51)
[2020-08-28] MEDS ORDERED: LIDOCAINE PATCH REMOVAL MC ONE (22:00)
== END 2020-08-28 11:00 ==
LOC: JER 09:11
PROC: 3E0233Z Introduction of Anti-inflammatory into Muscle, Percutaneous Approach (ICD-10-PCS; principal; 2020-08-28)
DX: M25.551 Pain in right hip (principal)
CPT/HCPCS: 96372; 99284-25

== ENCOUNTER 2020-09-10 11:54 | Emergency (ER) | payer OTHER | END 2020-09-10 12:17 | disposition home or self-care (01) | LOC: JVIRT 11:54 | DX: Z11.52 Encounter for screening for COVID-19 (principal) | CPT/HCPCS: G2012-GT ==

== ENCOUNTER 2021-12-25 07:19 | Emergency (ER) | payer OTHER ==
[2021-12-25 07:47] VITALS: BP 122/80; PULSE 88; TEMP 98.2; BMI 40.6
[2021-12-25] MEDS ORDERED: LIDOCAINE 5% TOPICAL PATCH TP ONE (08:29)
[2021-12-25] MEDS ORDERED: KETOROLAC TROMETHAMINE 30 MG/1 ML VIAL IM ONE (08:29)
[2021-12-25] MEDS ORDERED: LIDOCAINE 5% TOPICAL PATCH ONE (08:41)
[2021-12-25] MEDS ORDERED: KETOROLAC TROMETHAMINE 30 MG/1 ML VIAL ONE (08:41)
== END 2021-12-25 10:00 | disposition home or self-care (01) ==
LOC: JER 07:19
PROC: 3E0233Z Introduction of Anti-inflammatory into Muscle, Percutaneous Approach (ICD-10-PCS; principal; 2021-12-25)
DX: M25.551 Pain in right hip (principal)
CPT/HCPCS: 73502-TC-RT-FY; 96372; 99283-25

== ENCOUNTER 2022-06-27 08:26 | Emergency (ER) | payer OTHER ==
[2022-06-27 08:44] VITALS: BP 188/82; PULSE 100; RESP 20; TEMP 98.1; BMI 39.9
[2022-06-27] MEDS ORDERED: IBUPROFEN 600 MG TABLET (FP) PO ONE (10:49)
== END 2022-06-27 11:36 | disposition home or self-care (01) ==
LOC: JER 08:26
DX: U07.1 COVID-19 (principal)
CPT/HCPCS: 71046-TC-FY; 99284-25; C9803-CS; U0003; U0005

== ENCOUNTER 2022-09-02 08:42 | Emergency (ER) | payer OTHER ==
[2022-09-02 08:46] VITALS: BP 158/72; PULSE 89; RESP 18; TEMP 98.2; BMI 39.9
[2022-09-02] MEDS ORDERED: KETOROLAC TROMETHAMINE 15 MG/ML VIAL IM ONE (09:12)
== END 2022-09-02 10:41 | disposition home or self-care (01) ==
LOC: JERFT 08:42 → JER 08:42 → JERFT 10:41
PROC: 3E023GC Introduction of Other Therapeutic Substance into Muscle, Percutaneous Approach (ICD-10-PCS; principal; 2022-09-02)
DX: M16.11 Unilateral primary osteoarthritis, right hip (principal)
CPT/HCPCS: 73502-TC-RT-FY; 96372; 99284-25

== ENCOUNTER 2023-03-10 13:18 | Emergency (ER) | payer OTHER ==
[2023-03-10 13:26] VITALS: BP 134/75; PULSE 82; RESP 20; TEMP 98.5
[2023-03-10] MEDS ORDERED: KETOROLAC TROMETHAMINE 30 MG/1 ML VIAL IM ONE (15:10)
[2023-03-10] MEDS ORDERED: KETOROLAC TROMETHAMINE 60 MG/2 ML VIAL ONE (15:12)
== END 2023-03-10 16:42 | disposition home or self-care (01) ==
LOC: JERFT 13:18
PROC: 3E023GC Introduction of Other Therapeutic Substance into Muscle, Percutaneous Approach (ICD-10-PCS; principal; 2023-03-10)
DX: M25.561 Pain in right knee (principal)
CPT/HCPCS: 73562-TC-RT-FY; 93971-TC; 96372; 99284-25

== ENCOUNTER 2023-06-01 03:15 | Emergency (ER) | payer OTHER ==
[2023-06-01 03:25] VITALS: BMI 33.2
[2023-06-01] MEDS ORDERED: SODIUM CHLORIDE 0.9% 500 ML INFUS.BAG IV ONE (03:40)
[2023-06-01] MEDS ORDERED: LEVALBUTEROL HCL 0.63 MG/3 ML VIAL.NEB. IH ONE (03:41)
[2023-06-01] MEDS ORDERED: DEXAMETHASONE SOD PHOSPHATE 10 MG/1 ML VIAL IVPUSH ONE (03:41)
[2023-06-01] MEDS ORDERED: DEXAMETHASONE SOD PHOSPHATE 10 MG/1 ML VIAL ONE (03:46)
[2023-06-01] MEDS ORDERED: LEVALBUTEROL HCL 0.31 MG/3 ML VIAL.NEB IH ONE ×2 (03:46→04:06)
[2023-06-01 04:53] LABS: BASO % 0.6 % (0-2.0); EOS % 3.5 % (0-4.5); HEMATOCRIT 41.9 % (32.4-45.2); HEMOGLOBIN 14.5 GM/dL (10.7-15.3); LYMPH % 33.4 % (8-40); MCH 30.9 pg (25.7-33.7); MCHC 34.6 g/dl (32.0-36.0); MEAN CELL VOLUME 89.2 fl (80-96); MEAN PLT VOLUME 10.9 fl (7.5-11.1); MONO % 7.3 % (3.8-10.2); NEUT % 55.2 % (42.8-82.8); PLATELET COUNT 213 10^3/uL (134-434); RBC 4.69 M/mm3 (3.60-5.2); RDW 13.5 % (11.6-15.6); WHITE BLOOD COUNT 8.1 K/mm3 (4.0-10.0)
[2023-06-01 05:15] LABS: POTASSIUM 4.1 mmol/L (3.5-5.1)
[2023-06-01 05:17] LABS: CALCIUM 8.5 mg/dL (8.5-10.1)
[2023-06-01 05:18] LABS: ALBUMIN 3.6 g/dl (3.4-5.0); BLOOD UREA NITROGEN 9.2 mg/dL (7-18); MAGNESIUM 1.8 mg/dL (1.8-2.4)
[2023-06-01 05:21] LABS: CREATININE 0.7 mg/dL (0.55-1.3)
[2023-06-01 05:22] LABS: TOT PROT 7.2 g/dl (6.4-8.2)
[2023-06-01 05:23] LABS: BILIRUBIN,TOTAL 0.3 mg/dL (0.2-1)
[2023-06-01 06:18] VITALS: BP 146/89; PULSE 82; RESP 17; TEMP 98.5
[2023-06-01 06:41] LABS: N-TERMINAL BNP 37.7 pg/ml (5-125)
== END 2023-06-01 07:00 | disposition home or self-care (01) ==
LOC: JER 03:15
PROC: 3E033NZ Introduction of Analgesics, Hypnotics, Sedatives into Peripheral Vein, Percutaneous Approach (ICD-10-PCS; principal; 2023-06-01)
DX: R05.9 Cough, unspecified (principal); J40 Bronchitis, not specified as acute or chronic; Z20.822 Contact with and (suspected) exposure to COVID-19
CPT/HCPCS: 0241U-QW; 36415; 71045-TC-FY; 80053; 83735; 83880; 84443; 84484; 85025; 85379; 93005; 93010; 96374; 99285-25; J1100

== ENCOUNTER 2023-06-05 11:53 | Emergency (ER) | payer OTHER ==
[2023-06-05 12:03] VITALS: BP 142/70; PULSE 89; RESP 16; TEMP 98; BMI 40.6
[2023-06-05] MEDS ORDERED: ONDANSETRON *ODT* 4 MG TABLET SL ONE (13:46)
[2023-06-05] MEDS ORDERED: ONDANSETRON *ODT* 4 MG TABLET ONE (13:50)
== END 2023-06-05 14:01 | disposition home or self-care (01) ==
LOC: JERFT 11:53 → JER 11:53 → JERFT 14:01
DX: R05.9 Cough, unspecified (principal); R19.7 Diarrhea, unspecified; R06.02 Shortness of breath; R53.83 Other fatigue
CPT/HCPCS: 99283-25; Q0162

== ENCOUNTER 2023-06-26 14:02 | Emergency (ER) | payer OTHER ==
[2023-06-26 14:16] VITALS: BP 143/65; PULSE 93; RESP 18; TEMP 98.3; BMI 43.2
[2023-06-26] MEDS ORDERED: ACETAMINOPHEN 500 MG TABLET (FP) PO ONE (15:24)
[2023-06-26] MEDS ORDERED: ACETAMINOPHEN 500 MG TABLET (FP) ONE (15:31)
== END 2023-06-26 16:30 | disposition home or self-care (01) ==
LOC: JERFT 14:02
DX: M25.551 Pain in right hip (principal)
CPT/HCPCS: 73502-TC-RT-FY; 99283-25

== ENCOUNTER 2024-04-16 09:01 | Emergency (ER) | payer OTHER ==
[2024-04-16 09:08] VITALS: BP 152/82; PULSE 76; RESP 16; TEMP 98.1; BMI 45.7
[2024-04-16] MEDS ORDERED: LIDOCAINE 4% PATCH TP ONE (10:00)
[2024-04-16] MEDS ORDERED: ACETAMINOPHEN 325 MG TABLET (FP) ONE (10:00)
[2024-04-16] MEDS: LIDOCAINE 4% PATCH TP ONE (10:07)
[2024-04-16] MEDS: ACETAMINOPHEN 325 MG TABLET (FP) PO ONE (10:07)
[2024-04-16] MEDS ORDERED: LIDOCAINE PATCH REMOVAL MC SCH (22:00)
== END 2024-04-16 10:28 | disposition home or self-care (01) ==
LOC: JERFT 09:01
DX: M54.50 Low back pain, unspecified (principal); M79.18 Myalgia, other site; M54.6 Pain in thoracic spine
CPT/HCPCS: 99283-25

== ENCOUNTER 2024-04-23 13:45 | Emergency (ER) | payer OTHER ==
[2024-04-23 13:55] VITALS: BP 114/73; PULSE 72; RESP 16; TEMP 98.8; BMI 44.4
[2024-04-23] MEDS ORDERED: LIDOCAINE 4% PATCH TP ONE (14:08)
[2024-04-23] MEDS ORDERED: IBUPROFEN 400 MG TABLET (FP) PO ONE (14:08)
[2024-04-23] MEDS: IBUPROFEN 400 MG TABLET (FP) PO ONE (14:14)
[2024-04-23] MEDS: LIDOCAINE 5% TOPICAL PATCH TP ONE (14:15)
[2024-04-23] MEDS ORDERED: LIDOCAINE PATCH REMOVAL MC SCH (22:00)
== END 2024-04-23 14:37 | disposition home or self-care (01) ==
LOC: JERFT 13:45
DX: M54.50 Low back pain, unspecified (principal)
CPT/HCPCS: 99283-25